=== PATIENT | female | born 1995 | race Caucasian/White ===

== ENCOUNTER → 2016-10-10 | Outpatient (CLI) | payer BC ==
--- NOTE | 2016-10-15 08:57 | DEXA ---
AP SPINE L1 - L4 1.172 -0.2 0.2 LT FEMUR TOTAL 0.871 -1.1 -0.9 RT FEMUR TOTAL 0.862 -1.2 -0.9 TOTAL BODY TOTAL OTHER DUAL FEMUR FRAX* ASSESSMENT Risk factors: Not within fracture age (40-90) 10 year probability of fracture Major osteoporotic fracture % Hip fracture % COMMENTS: Normal bone densitometry of the spine. There is low bone density of the hips. FOLLOW-UP: Recommendation for the next bone density exam: 2 years. VIRGILD
== END ==
LOC: M WHC 14:36
PROVIDERS: ATTEND Internal Medicine Nephrology
DX: N20.0 Calculus of kidney (principal); R82.99 Other abnormal findings in urine; E55.9 Vitamin D deficiency, unspecified

== ENCOUNTER → 2016-10-29 | Outpatient (CLI) | payer BC ==
--- NOTE | 2016-10-29 12:57 | REP ---
CT STUDY OF THE ABDOMEN AND PELVIS WITHOUT IV OR ORAL CONTRAST: HISTORY: Kidney stone. Renal tubular acidosis. CT study from March 06, 2016 is reviewed for comparison. This showed intrarenal calculi and an obstructing right distal ureteral stone. Also noted was a left ovarian cyst. 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 Umbilical jewelry is noted incidentally. The lung bases are clear. The liver and the spleen are normal in size and homogeneous in texture. No adrenal lesion is seen on either side. The pancreas and the gallbladder remain unremarkable. Normal caliber aorta is seen. No retroperitoneal mass or adenopathy is seen. A normal-caliber appendix is seen. The previously noted left ovarian cyst is resolved. There is a 2.0 cm follicle cyst in the left ovary and a smaller cystic area seen in the right ovary. No free fluid is noted. Urinary bladder is intact. No ureteral calculus is seen. There is no evidence of hydronephrosis on either side today. There are bilateral intrarenal calculi with three small 2 to 3 mm calculi in the right kidney mid and lower pole. There are 5 or 6 intrarenal calculi in the left kidney, the largest of which is at the upper pole measuring 4 mm. Small and large intestinal bowel loops are unremarkable. IMPRESSION: Bilateral intrarenal nephrolithiasis left more numerous and little larger than right. No hydronephrosis or ureteral stone is seen today. No other significant abnormality. Signed by Jean Pierre Loya MD 10/29/2016 04:21 P
== END ==
LOC: M RAD 10:36
PROVIDERS: ATTEND Internal Medicine Nephrology
DX: N20.0 Calculus of kidney (principal); R82.99 Other abnormal findings in urine; E55.9 Vitamin D deficiency, unspecified